=== PATIENT | female | born 1980 | race Caucasian/White ===

== ENCOUNTER → 2016-03-27 08:22 | Outpatient (CLI) | payer MEDICAID | END | disposition home or self-care (01) | LOC: D.CN 08:22 | DX: M54.16 Radiculopathy, lumbar region (principal) ==

== ENCOUNTER → 2016-04-06 08:21 | Outpatient (CLI) | payer MEDICAID ==
--- NOTE | 2016-04-12 07:16 | EMG ---
PATIENT:ODILIA ROLDAN DATE OF SERVICE: 04/06/16 MEDICAL RECORD: [id number] DATE OF : 84 LOCATION: [facility] ADMISSION DATE: REFERRING PHYSICIAN: LIBIA TOM DPM INTERPRETING PHYSICIAN: STEFFI QUINONEZ MD DATE OF SERVICE: 04/06/2016 Electromyographic Report REFERRED BY: ____ as an outpatient. DATE OF EXAMINATION: 04/06/2016 ELECTROMYOGRAPHIC DATA: Electromyographic examination is limited to both lower extremities and is limited to the nerve conduction studies only at the request of the referring physician. In the right lower extremity, right peroneal motor stimulation elicits a compound motor action potential with a distal latency of 3.3 milliseconds, peak amplitude of 5 millivolts, and calculated conduction velocity of 49 meters per second. Right tibial motor stimulation elicits a compound motor action potential with a distal latency of 3.6 milliseconds, peak amplitude of 21 millivolts, and calculated conduction velocity of 46 meters per second. Antidromic right sural sensory stimulation elicits a response with a distal latency of 2.7 milliseconds, amplitude of 12 microvolts and calculated conduction velocity of 47 meters per second. The right lower extremity H reflex recording at the gastrocsoleus has a latency of 30 milliseconds. In the left lower extremity, left peroneal motor stimulation elicits a compound motor action potential with a distal latency of 3.6 milliseconds, peak amplitude of 3 millivolts, and calculated conduction velocity of 47 meters per second. Left tibial motor stimulation elicits a compound motor action potential with a distal latency of 3.5 milliseconds, peak amplitude of 26 millivolts, and calculated conduction velocity of 45 meters per second. Antidromic left sural sensory stimulation elicits a response with a distal latency of 3.0 milliseconds, amplitude of 15 microvolts and calculated conduction velocity of 42 meters per second. The left lower extremity H reflex recording at gastrocsoleus has a latency of 30 milliseconds. Needle electrode examination is not performed at this time. INTERPRETATION: Electromyographic examination of both lower extremities, limited to the nerve conduction studies only at the request of the referring physician, is normal. All values fall within normal limits. TRANSINT:[id number] Voice Confirmation ID: [id number] DOCUMENT ID: [id number] ELECTROMYGRAM/NERVE CONDUCTION [id number] ODILIA ROLDAN STEFFI QUINONEZ MD at 0716 CC: [id number] DICTATION DATE: 04/07/16 0645 [employer]: 04/07/16 0824 DEP CLI 04/06/16 [facility] [address] [place] [address]
== END | disposition home or self-care (01) ==
LOC: D.CN 03-27 08:30
DX: M54.16 Radiculopathy, lumbar region (principal)